=== PATIENT | male | born 1940 | race Caucasian/White ===

== ENCOUNTER 2023-04-27 11:23 | Emergency (ER) | payer OTHER, SELFPAY ==
[2023-04-27 11:42] VITALS: BP 119/79; PULSE 70; RESP 16; TEMP 36.6; O2SAT 98; BMI 28.3
--- NOTE | 2023-04-27 11:46 | DI.RAD.S_ITS ---
PROCEDURE: XR ANKLE LT MIN 3V INDICATIONS: pain x 1 week TECHNIQUE: 3 views of the ankle were acquired. COMPARISON: None. FINDINGS: Bones: No fractures or dislocations. Ankle mortise is normally aligned. No suspicious bony lesions. Moderate calcaneal spur. 2 mm rounded calcific density adjacent to the medial malleolus could reflect avulsion fracture. Soft tissues: No tibiotalar joint effusion. No radiopaque foreign body Generalized soft tissue swelling IMPRESSION: Rounded calcific densities adjacent to the medial malleolus could reflect avulsion fracture in the proper clinical setting. Generalized soft tissue swelling Approved by: Austin Monroe M.D. on 04/27/2023 at 12:06
[2023-04-27 15:40] VITALS: BP 129/73; PULSE 69; O2SAT 98
--- NOTE | 2023-04-27 15:57 | ED.EXTPRO ---
HPI - Extremity Problem <Louise Roche PA-C - Last Filed: 04/27/23 16:51> General Chief complaint: Extremity Problem,Nontraumatic Stated complaint: L/ leg pain/ thinks stress fracture Time Seen by Provider: 04/27/23 14:46 Source: patient Mode of arrival: Ambulatory History of Present Illness HPI Narrative: Patient is a 82-year-old male who presents with left posterior ankle pain. He reports twisting his ankle a week and a half ago and having [id number] pain. He has been managing this at home with RICE. He presents today because he has a new pain in his posterior lateral ankle superior to the lateral malleolus. He reports no new injury. He does endorse swelling of his ankles since the ankle sprain a week and half ago. He denies calf pain or swelling, states sensation is intact in his foot. Related Data Allergies Allergy/AdvReac Type Severity Reaction Status Date / Time No Known Drug Allergies Allergy Verified 04/27/23 11:47 Review of Systems <Louise Roche PA-C - Last Filed: 04/27/23 16:51> Review of Systems ROS Unobtainable: All systems reviewed & are unremarkable except as noted in HPI and below Patient History <Louise Roche PA-C - Last Filed: 04/27/23 16:51> Social History Smoking Status: Never smoker Smoking Status: Never smoker alcohol intake frequency: a few times a week Substance Use Type: marijuana Exam <Louise Roche PA-C - Last Filed: 04/27/23 16:51> Narrative Exam Narrative: GENERAL:82 year old patient appears stated age. Well-developed patient, in no distress. NEURO: AOx3. HEAD: Atraumatic. Normocephalic. RESPIRATORY: no distress EXTREMITIES: Left ankle edema, no ecchymosis. Positive DP pulse. Sensation intact. Full range of motion of left ankle with mild discomfort. Tenderness to palpation over distal fibula. No tenderness over Achilles tendon. No calf tenderness, edema, erythema. SKIN: No rash or erythema of visible areas Initial Vital Signs Initial Vital Signs: Vital Signs Temperature 97.9 F 04/27/23 11:42 Pulse Rate 70 04/27/23 11:42 Respiratory Rate 16 08/19/23 11:42 Blood Pressure 119/79 04/27/23 11:42 Pulse Oximetry 98 04/27/23 11:42 Oxygen Delivery Method Room Air 04/27/23 11:42 <Nancy Guevara DO - Last Filed: 04/28/23 07:22> Initial Vital Signs Initial Vital Signs: Vital Signs Temperature 97.9 F 04/27/23 11:42 Pulse Rate 70 04/27/23 11:42 Respiratory Rate 16 04/27/23 11:42 Blood Pressure 119/79 04/27/23 11:42 Pulse Oximetry 98 04/27/23 11:42 Oxygen Delivery Method Room Air 04/27/23 11:42 Course <Louise Roche PA-C - Last Filed: 04/27/23 16:51> Orders Ordered: ED Orders 04/27/23 11:46 XR ankle LT min 3V Stat Vital Signs Vital signs: Vital Signs - 8 hr 04/27/23 11:42 04/27/23 15:40 Temperature 97.9 F Pulse Rate 70 69 Respiratory Rate 16 Blood Pressure 119/79 129/73 Pulse Oximetry 98 98 Oxygen Delivery Method Room Air Room Air <DO Jeannette Moreira Last Filed: 04/28/23 07:22> Orders Ordered: ED Orders 04/27/23 11:46 XR ankle LT min 3V Stat Vital Signs Vital signs: Vital Signs - 8 hr 04/27/23 11:42 04/27/23 15:40 Temperature 97.9 F Pulse Rate 70 69 Respiratory Rate 16 Blood Pressure 119/79 129/73 Pulse Oximetry 98 98 Oxygen Delivery Method Room Air Room Air MDM - Extremity (Nontraumatic) <Louise Roche PA-C - Last Filed: 04/27/23 16:51> Imaging Data Extremity x-ray #1: Radiologist's Impression: Patient: Corey Rodgers MR#: [id number] : 1940 Acct:[id number] Age/Sex: 82 / M Date of Service: 04/27/23 Loc: ED Accession Number: [id number] ?? Procedure: XR ankle LT min 3V Ordering Provider: Nancy Guevara D.O. PROCEDURE:? XR ANKLE LT MIN 3V ? INDICATIONS:? pain x 1 week ? TECHNIQUE:? 3 views of the ankle were acquired.? ? COMPARISON:? None. ? FINDINGS:? ? Bones:? No fractures or dislocations.? Ankle mortise is normally aligned.? No suspicious bony lesions.? Moderate calcaneal spur.? 2 mm rounded calcific density adjacent to the medial malleolus could reflect avulsion fracture. ? Soft tissues:? No tibiotalar joint effusion.? No radiopaque foreign body? Generalized soft tissue swelling ? ? IMPRESSION:? ? Rounded calcific densities adjacent to the medial malleolus could reflect avulsion fracture in the proper clinical setting. ? Generalized soft tissue swelling Approved by: Austin Monroe M.D. on 04/27/2023 at 12:06? MDM Narrative Medical decision making narrative: Multiple etiologies for patient's symptoms considered including, but not limited to: Left ankle sprain, left ankle fracture, DVT. X-ray without any bony abnormality at the site of pain. Suspect pain is secondary to ankle sprain, possibly related to a change in his gait pattern putting strain on the ligaments of his ankle. Advised continue supportive care, can follow up with PCP or orthopedics if not improving. Patient's symptoms improved over duration of stay with above-stated therapies. Findings and discharge diagnosis discussed with patient/family followed by verbalization of understanding Return precautions discussed with patient/family whom verbalize understanding of diagnosis and plan Discharge Plan Departure Patient Disposition: Home Clinical Impression: Ankle sprain Instructions: DI for Ankle Sprain Activity Restrictions/Additional Instructions: *You have been diagnosed with left ankle sprain. I do not see any fracture on your x-ray. I would continuing compression with an Thomas wrap, rest, elevation. If not improving, you may call [facility] for follow-up. *What to do: *Please continue to take your regular medications as directed. [ ] New medication prescriptions sent to your pharmacy: [ ] [ ] New medication written as a paper prescription [ x] No new medications given *Please follow up with your primary care provider in 2-3 days, call for an appointment. Let them know you were seen in the Emergency Department and that we ask that you be seen in follow up. We will electronically transmit a record of today's note if your PCP is in our system *If you do not have a primary care provider please contact the [facility] Resource line at [phone]. They will ask some questions about your medical history and help get you set up with a doctor in the community. *Return to Emergency Department if you should have any new, worsening or concerning symptoms, such as [fever greater than 101 F, shaking chills, worsening pain, persistent vomiting or other bothersome symptoms] Referrals: [facility] [Provider Group] Miscellaneous,Doctor, [Primary Care Provider] - Stand Alone Forms: Patient Portal/API <Nancy Guevara DO - Last Filed: 04/28/23 07:22> Cosign ED Attending [place] Attestation: I was immediately available in the department for consultation. Documentation has been reviewed.
[2023-04-27 17:03] VITALS: BP 144/77; PULSE 70; RESP 18; O2SAT 99
== END 2023-04-27 17:05 | disposition home or self-care (01) ==
PROVIDERS: Emergency Provider Physician Assistant
DX: S93.402A Sprain of unspecified ligament of left ankle, initial encounter (principal); X50.1XXA Overexertion from prolonged static or awkward postures, initial encounter
CPT/HCPCS: 73610; 99281; 99283